=== PATIENT | female | born 1960 | race Caucasian/White ===

== ENCOUNTER → 2016-12-14 | Day surgery (SDC) | payer OTHER, MEDICAID ==
[~2016-12-14] MED LIST: AMLO5 PO; ATEN1TAB74 PO; BETH25TA PO; BUPIVACAINE HCL PF 0.5% 30 ML VIAL ONE; DICL-86 PO; KETO10 PO; KETOROLAC TROMETHAMINE 30 MG/ML (IVP) VIAL IV PUSH ONE; LACTATED RINGER'S 1000 ML INJ 1,000 ML ONE; LASI20TA PO; MEDR4PAK3 PO; MIDAZOLAM HCL 2 MG/2 ML VIAL ONE; ONDANSETRON HCL 4 MG/2 ML VIAL IV PUSH ONE; ORPH100T PO; POTA-243 PO; PROPOFOL 200 MG/20 ML AMP IV ONE; ROBA750T3 PO; XANA1TAB6 PO; ceFAZolin 2 GM PREMIX 50 ML ONE
--- NOTE | 2017-01-05 17:46 | MP ---
cc: VAL ZUNIGA DPM DATE OF SURGERY 12/14/[address] Connie Zuniga [facility] None PREOPERATIVE DIAGNOSIS 1. Right foot extensor hallucis longus tear. 2. Right foot first MPJ capsulitis PATHOLOGY SENT None ANESTHESIA General. POSTOPERATIVE DIAGNOSIS 1. Right foot extensor hallucis longus tear. 2. Right foot first MPJ capsulitis PROCEDURE 1. Right foot extensor hallucis longus repair 2. Right foot first MPJ capsulorrhaphy INJECTABLES 10 mL of 0.5% Marcaine plain. ESTIMATED BLOOD LOSS Less than 5 mL. MATERIALS 2-0 and 3-0 FiberWire, 3-0 Monocryl, 3-0 Prolene, a graft wrap COMPLICATIONS None. INDICATION Ms. Jackson is a patient well-known to me. She had a [employer] bunionectomy and then extensor hallucis longus lengthening several months ago. She did prematurely walk on the site and to have ruptured the tendon at that time. She also has developed a severe hypertrophic scarring and some redundant bunion. We spoke about conservative and surgical intervention. The patient has elected for surgical intervention at this time. She is aware of all possible risks and benefits. The consent was signed. The procedure was explained. No guarantees were given. PROCEDURE IN DETAIL Under mild sedation, the patient was brought into the operating room, placed on the operating table in supine position. Following IV sedation, a pneumatic ankle tourniquet was placed around the right calf. The leg was then scrubbed, prepped and draped in the usual aseptic manner. Attention was directed to the dorsal aspect of the first metatarsal-phalangeal joint where a linear longitudinal incision was created using skin and soft tissue identify and retract any vital neurovascular structures. The capsule was incised and the heavily scarred tissue was debulked and a capsulorrhaphy was performed. The area was flushed copious amounts of sterile saline and both ends of the extensor hallucis longus tendon were identified. The most distal end appeared thicker and healthier in nature versus the proximal and did appear to have some hematogenous tissue formed within it, but the tendon was clearly intact. An end to end repair was possible and it was secured with 2-0 and 3-0 FiberWire and reinforced with a tendon wrap. The area was washed out with sterile saline. Deep and subcutaneous tissues were closed using 0 Monocryl, skin was closed using 3-0 Prolene. 10 mL of 0.5% Marcaine plain were injected around the surgical site. The pneumatic tourniquet was released. There was a prompt hyperemic response to all digits of the right foot. The toe was seen in a rectus alignment with the rest of the foot. Sterile Adaptic, 4x4s, Hermann and a well-padded posterior splint was applied. The patient tolerated the procedure and anesthesia well. She will recover in the PACU for a period of time before being discharged home with written and oral postoperative instructions. NOTE: After the capsulorrhaphy was performed, the first ray was put into a rectus and neutral position and a 0.062 K-wire was inserted from the distal medial aspect of the hallux to the proximal lateral aspect of the first metatarsal in order to allow immobilization and adequate healing for the tendon. Then the tendon ends were identified. Val OCHOA/SA /5:09 PM /5:29 PM
== END | disposition home or self-care (01) ==
LOC: ESDC 09:20
PROVIDERS: ATTEND Podiatrist Foot & Ankle Surgery
DX: M66.271 Spontaneous rupture of extensor tendons, right ankle and foot (principal); M20.5X1 Other deformities of toe(s) (acquired), right foot
CPT/HCPCS: 00400; 01470; 15275; 28208; 28270; J0690; J1885; J2250; J2405; J7120; Q4107